=== PATIENT | female | born 1990 | race Caucasian/White ===

== ENCOUNTER → 2016-10-15 | Outpatient (CLI) | payer OTHER ==
--- NOTE | 2016-10-15 13:32 | US ---
Thyroid Sonography Clinical History: 25-year-old female noted to have thyroid nodules on an in-office exam. ICD-10 Diagnostic Code: E04.2. Technique: A linear 12 MHz transducer was used to sonographically evaluate each lobe of the thyroid g land and the isthmus. Color Doppler was also used. Comparison Study: None currently available. Findings: Right Thyroid Lobe: This measures 5.4 x 1.4 x 1.4 cm, and in the midpole, there is a 0.6 x 0.3 x 0.7 cm hypoechoic, well-circumscribed nodule. In the lower pole, there is a slightly irregularly marginat ed hypoechoic nodule with some peripheral calcific echogenicity, measuring 1.2 x 0.9 x 0.8 cm. Accord ing to [employer] Society Guidelines, an ultrasound-guided fine-needle aspiration biopsy is warranted. Isthmus: This measures 0.4 cm in AP diameter, and there is a 1.5 x 1.4 x 0.8 cm well-circumscribed, o katey-shaped, mildly complex cyst with some acoustic shadowing. This probably represents a complex jaydon oid cyst. There is no intrinsic septation or mural nodularity, and biopsy is not warranted at this po int. Left Thyroid Lobe: This measures 3.6 x 1.2 x 1.0 cm, and there is no unusual hyperemia or focal domin ant nodule. Cursory evaluation of cervical lymph node chains does not reveal any evidence of adenopathy. Impression: 1. There is a partially-calcified, irregularly-marginated solid nodule in the lower pole of the right lobe of the thyroid gland measuring 1.2 cm in diameter. Ultrasound-guided fine-needle aspiration bio psy is warranted. 2. 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
== END ==
LOC: BMCIMAGING 11:40
PROVIDERS: ATTEND Internal Medicine Endocrinology, Diabetes & Metabolism
DX: E04.2 Nontoxic multinodular goiter (principal)
CPT/HCPCS: 76536-PO